=== PATIENT | female | born 1935 | race African-American/Black ===

== ENCOUNTER 2018-04-08 11:13 | Inpatient (IN) ==
[2018-04-08] MEDS ORDERED: ALBUTEROL/IPRATROPIUM 3 ML NEB RESP TX STA (11:47)
[2018-04-08] MEDS ORDERED: KETOROLAC 30 MG/1 ML VIAL IV STA (11:47)
[2018-04-08] MEDS ORDERED: ORPHENADRINE 60 MG/2 ML VIAL IV STA (11:47)
[2018-04-08] MEDS ORDERED: methylPREDNISolone SOD SUC 125 MG/2 ML VIAL IV STA (11:47)
[2018-04-08] MEDS ORDERED: METOPROLOL TARTRATE 5 MG/5 ML VIAL IV STA (12:06)
[2018-04-08 12:39] LABS: Basophils # 0.1 10*3/uL (0.0-0.2); Basophils % 0.6 % (0.0-0.8); Eosinophils # 0.2 10*3/uL (0.0-0.87); Eosinophils % 1.8 % (0.00-10.9); Hemoglobin 11.9 GM/DL (12.0-16.0); Immature Granulocytes % 0.2 %; Immature Granulocytes Absolute 0.02 #; Lymphocytes # 3.8 10*3/uL (1.4-4.0); Lymphocytes % 36.1 % (21.3-54.2); Mean Corpuscular HGB Conc 32.2 GM/DL (32-36); Mean Corpuscular Hemoglobin 32 PG (27-34); Mean Corpuscular Volume 99.2 FL (87-102); Monocytes # 0.8 10*3/uL (0.11-0.8); Monocytes % 7.8 % (1.7-12.7); Neutrophils # 5.7 10*3/uL (1.4-7.4); Neutrophils % 53.5 % (38.7-73.9); Red Blood Count 3.73 MC/CUMM (3.8-5.5); Red Cell Distribution Width 14.4 % (9.3-17.3); White Blood Count 10.6 T/CUMM (4-12)
[2018-04-08 12:44] LABS: Platelet Count 97 T/CUMM (130-400)
[2018-04-08 13:03] LABS: Alanine Aminotransferase 24 U/L (13-56); Alkaline Phosphatase 93 U/L (45-117); Aspartate Amino Transferase 38 U/L (0-37); Blood Urea Nitrogen 18 MG/DL (7-18); Calcium 8.3 MG/DL (8.5-10.1); Glucose 206 MG/DL (74-106); Osmolality,Calculated 282.7 MOS/KG (273-304); Potassium 4.9 MMOL/L (3.5-5.1); Sodium 138 MMOL/L (136-145); Total Protein 6.4 G/DL (6.4-8.3); Troponin I < 0.015 NG/ML (0.00-0.045)
[2018-04-08] MEDS ORDERED: FUROSEMIDE 40 MG/4 ML VIAL IV STA (13:25)
[2018-04-08] MEDS ORDERED: DEXTROSE 50% 25 GM/50 ML VIAL IV PRN (14:02)
[2018-04-08] MEDS ORDERED: ONDANSETRON 4 MG/2 ML VIAL IV PRN (14:02)
[2018-04-08] MEDS ORDERED: ACETAMINOPHEN 325 MG TABLET PO PRN (14:02)
[2018-04-08] MEDS ORDERED: GLUCAGON 1 MG VIAL IM PRN (14:02)
[2018-04-08] MEDS ORDERED: ZALEPLON 5 MG CAPSULE PO PRN (14:02)
[2018-04-08 14:40] LABS: Thyroid Stimulating Hormone 2.06 uIU/ml (0.358-3.74)
[2018-04-08 14:49] LABS: INR 1.4; PT Patient Result 14.8 SECS; Partial Thromboplastin Time 32.1 SECS (0-40)
[2018-04-08] MEDS: LEVALBUTEROL 0.63 MG/3 ML NEB RESP TX SCH ×2 (15:35→23:03)
[2018-04-08] MEDS ORDERED: PNEUMOCOCCAL VACCINE (13 VALENT) 0.5 ML SYRINGE IM ONE (16:13)
[2018-04-08] MEDS: INSULIN LISPRO 100 UNIT/ML SUBCUT SCH ×2 (17:13→20:38)
[2018-04-08] MEDS: PANTOPRAZOLE 40 MG TABLET PO SCH (17:15)
[2018-04-08] MEDS: APIXABAN 2.5 MG TABLET PO SCH (20:38)
[2018-04-08] MEDS: GLIMEPIRIDE 2 MG TABLET PO SCH (20:38)
[2018-04-08] MEDS: CARVEDILOL 12.5 MG TABLET PO SCH (20:38)
[2018-04-08] MEDS: MEMANTINE 10 MG TABLET PO SCH (20:38)
[2018-04-08] MEDS ORDERED: DONEPEZIL 10 MG TABLET PO SCH (21:00)
[2018-04-08] MEDS ORDERED: QUEtiapine 25 MG TABLET PO SCH (21:00)
[2018-04-09 04:12] LABS: Basophils % 0.1 % (0.0-0.8); Hematocrit 35.6 VOL% (35.7-47.0); Immature Granulocytes % 0.3 %; Immature Granulocytes Absolute 0.03 #; Lymphocytes # 3.4 10*3/uL (1.4-4.0); Lymphocytes % 37.9 % (21.3-54.2); Mean Corpuscular HGB Conc 33.7 GM/DL (32-36); Mean Corpuscular Hemoglobin 32 PG (27-34); Mean Corpuscular Volume 96.2 FL (87-102); Mean Platelet Volume 11.5 FL (9.6-12.0); Monocytes # 0.1 10*3/uL (0.11-0.8); Monocytes % 1.1 % (1.7-12.7); Neutrophils # 5.5 10*3/uL (1.4-7.4); Neutrophils % 60.6 % (38.7-73.9); Platelet Count 106 T/CUMM (130-400); Red Cell Distribution Width 14.4 % (9.3-17.3)
[2018-04-09 04:52] LABS: Bilirubin,Total 1.2 MG/DL (0.2-1.0); Calcium 8.6 MG/DL (8.5-10.1); Osmolality,Calculated 288.3 MOS/KG (273-304); Potassium 4.3 MMOL/L (3.5-5.1); Total Protein 5.9 G/DL (6.4-8.3)
[2018-04-09] MEDS: LEVALBUTEROL 0.63 MG/3 ML NEB RESP TX SCH (07:34)
[2018-04-09] MEDS: GLIMEPIRIDE 2 MG TABLET PO SCH (08:45)
[2018-04-09] MEDS: MEMANTINE 10 MG TABLET PO SCH (08:46)
[2018-04-09] MEDS: PANTOPRAZOLE 40 MG TABLET PO SCH (08:46)
[2018-04-09] MEDS: CARVEDILOL 12.5 MG TABLET PO SCH (08:46)
[2018-04-09] MEDS: APIXABAN 2.5 MG TABLET PO SCH (08:46)
[2018-04-09] MEDS: INSULIN LISPRO 100 UNIT/ML SUBCUT SCH ×2 (08:48→12:56)
[2018-04-09] MEDS ORDERED: FUROSEMIDE 80 MG TABLET PO SCH (09:00)
[2018-04-09] MEDS ORDERED: THYROID 60 MG TABLET PO SCH (09:00)
[2018-04-09 12:23] VITALS: BP 114/71
== END 2018-04-09 14:15 | disposition home or self-care (01) | DRG 292 ==
LOC: N.ED 11:13 → N.EDINP 13:53 → SUATTDRO 13:53 → N.TELES 14:50
PROVIDERS: ADMIT Internal Medicine; ATTEND Internal Medicine